=== PATIENT | female | born 1980 | race African-American/Black ===

== ENCOUNTER 2022-03-22 16:10 | Inpatient (IN) | payer BC ==
[~2022-03-22] VITALS: Ht 160 cm; Wt 78.0 kg
[2022-03-22] MEDS ORDERED: PANTOPRAZOLE SOD 40 MG TABEC PO ONE (16:30)
[2022-03-22] MEDS ORDERED: LIDOCAINE VISC 2% SOLN 15 ML UDC PO ONE (16:30)
[2022-03-22] MEDS ORDERED: MAGNESIUM/ALUMINUM/SIMETHICONE 30 ML UDC PO ONE (16:30)
[2022-03-22 16:33] LABS: BASOPHILS # (AUTO) 0.1 (0.0-0.1); BASOPHILS % 0.8 % (0.0-1.0); EOSINOPHILS # (AUTO) 0.2 (0.0-0.4); EOSINOPHILS % 1.6 % (0.0-6.0); HEMATOCRIT 38.3 % (34.2-44.1); HEMOGLOBIN 12.5 g/dL (12.0-16.0); LYMPHOCYTES # (AUTO) 3.5 (1.0-3.2); LYMPHOCYTES % 29.3 % (18.0-39.1); MEAN CORPUSCULAR HEMOGLOBIN 29.4 pg (28-32); MEAN CORPUSCULAR HGB CONC 32.6 g/dL (31-35); MEAN CORPUSCULAR VOLUME 90.1 fL (81-99); MONOCYTES % 8.7 % (4.4-11.3); NEUTROPHILS # (AUTO) 6.9 (2.1-6.9); NEUTROPHILS % 58.9 % (38.7-80.0); PLATELET COUNT 448 x10e3/uL (140-360); RED BLOOD COUNT 4.25 x10e6/uL (3.6-5.1); RED CELL DISTRIBUTION WIDTH 14.8 % (11.7-14.4)
[2022-03-22 16:49] LABS: ALBUMIN 3.5 g/dL (3.5-5.0); ALBUMIN/GLOBULIN RATIO 0.9 (0.8-2.0); ANION GAP 15.5 mmol/L (8-16); CALCIUM 8.5 mg/dL (8.4-10.2); CREATININE, SERUM 0.86 mg/dL (0.57-1.11); POTASSIUM 3.5 mmol/L (3.5-5.1)
[2022-03-22 16:54] LABS: LIPASE 28 U/L (8-78)
[2022-03-22 17:29] LABS: CLARITY,URINE CLEAR (CLEAR); COLOR,URINE YELLOW (YELLOW); KETONES,URINE NEGATIVE (NEGATIVE); LEUKOCYTE ESTERASE ,URINE NEGATIVE (NEGATIVE); NITRITE,URINE NEGATIVE (NEGATIVE); PROTEIN,URINE DIPSTICK NEGATIVE (NEGATIVE); URINE UROBILINOGEN 0.2 mg/dL (0.2 - 1)
[2022-03-22] MEDS ORDERED: SODIUM CHLORIDE 0.9% 1000ML 1,000 ML IV ONE (17:30)
[2022-03-22] MEDS: ONDANSETRON HCL INJ 2MG/ML 2ML 2 MG/ML VIAL IV PRN ×2 (17:37→20:00)
[2022-03-22 17:42] LABS: BACTERIA,URINE FEW /HPF; EPITHELIAL CELLS,URINE FEW /LPF
[2022-03-22] MEDS ORDERED: IOPAMIDOL 370 MG/ML 100 ML INFUS..BTL INJ ONE (17:45)
[2022-03-22] MEDS: Morphine 4mg INJECTION 4 MG/ML INJ IV PRN ×2 (18:05→23:10)
[2022-03-22] MEDS: METOCLOPRAMIDE HCL 10 MG/2ML VIAL IV SCH (18:05)
[2022-03-22] MEDS ORDERED: PROMETHAZINE HCL (IM) 25 MG/ML VIAL IM ONE (18:45)
[2022-03-22] MEDS ORDERED: FENTANYL CITRATE/PF 100MCG/2 ML INJ IV PRN (18:45)
[2022-03-22] MEDS ORDERED: ONDANSETRON HCL INJ 2MG/ML 2ML 2 MG/ML VIAL IV PRN (18:45)
[2022-03-22] MEDS ORDERED: Morphine 4mg INJECTION 4 MG/ML INJ IV PRN (18:45)
[2022-03-22] MEDS: SODIUM CHLORIDE 0.9% 1000ML 1,000 ML IV SCH (19:03)
[2022-03-22] MEDS ORDERED: ACETAMINOPHEN 325 MG TAB PO PRN (19:30)
[2022-03-22] MEDS ORDERED: DOCUSATE SODIUM 100 MG CAP PO PRN (19:30)
[2022-03-22 21:40] VITALS: BP 131/75
[2022-03-22] MEDS: METRONIDAZOLE 500MG/NS 100ML 100 ML IV SCH (22:33)
[2022-03-22 22:59] VITALS: BP 131/75
[2022-03-23] VITALS (9 sets, daily range): BP systolic 95–147; BP diastolic 51–76
[2022-03-23] MEDS: METOCLOPRAMIDE HCL 10 MG/2ML VIAL IV SCH ×5 (00:11→23:18)
[2022-03-23] MEDS: SODIUM CHLORIDE 0.9% 1000ML 1,000 ML IV SCH ×3 (05:12→18:45)
[2022-03-23] MEDS: METRONIDAZOLE 500MG/NS 100ML 100 ML IV SCH ×3 (05:33→21:29)
[2022-03-23 07:53] LABS: BASOPHILS # (AUTO) 0.1 (0.0-0.1); BASOPHILS % 0.6 % (0.0-1.0); EOSINOPHILS # (AUTO) 0.2 (0.0-0.4); EOSINOPHILS % 1.9 % (0.0-6.0); HEMATOCRIT 34.7 % (34.2-44.1); HEMOGLOBIN 10.6 g/dL (12.0-16.0); LYMPHOCYTES % 32.3 % (18.0-39.1); MEAN CORPUSCULAR HEMOGLOBIN 28.7 pg (28-32); MEAN CORPUSCULAR HGB CONC 30.5 g/dL (31-35); MONOCYTES # (AUTO) 0.8 (0.2-0.8); NEUTROPHILS # (AUTO) 5.2 (2.1-6.9); NEUTROPHILS % 55.8 % (38.7-80.0); PLATELET COUNT 384 x10e3/uL (140-360); RED BLOOD COUNT 3.69 x10e6/uL (3.6-5.1); RED CELL DISTRIBUTION WIDTH 15.1 % (11.7-14.4)
[2022-03-23 08:40] LABS: ALBUMIN 2.6 g/dL (3.5-5.0); ALBUMIN/GLOBULIN RATIO 0.9 (0.8-2.0); CALCIUM 7.4 mg/dL (8.4-10.2); CREATININE, SERUM 0.84 mg/dL (0.57-1.11)
[2022-03-23] MEDS: Morphine 4mg INJECTION 4 MG/ML INJ IV PRN (09:37)
[2022-03-23] MEDS: ONDANSETRON HCL INJ 2MG/ML 2ML 2 MG/ML VIAL IV PRN (09:37)
[2022-03-23] MEDS ORDERED: PROPOFOL IV EMULSION 10 MG/ML 20 ML VIAL ONE (12:23)
[2022-03-23] MEDS ORDERED: POVIDONE IODINE 0.05% 0.05 % ML PO ONE (12:23)
[2022-03-23] MEDS ORDERED: MIDAZOLAM HCL 2 MG/2 ML VIAL ONE (12:49)
[2022-03-23] MEDS ORDERED: FENTANYL CITRATE/PF 100MCG/2 ML INJ ONE (12:49)
[2022-03-23] MEDS ORDERED: SODIUM CHLORIDE 0.9% 250ML 250 ML ONE (15:40)
[2022-03-23] MEDS ORDERED: METOCLOPRAMIDE HCL 10 MG/2ML VIAL ONE (15:59)
[2022-03-23] MEDS ORDERED: DONNATAL/LIDOCAINE/MAALOX 30 ML SUSP PO ONE (16:30)
[2022-03-23] MEDS: HYDROMORPHONE 1MG/1ML INJ IV PRN (22:02)
[2022-03-24] VITALS (8 sets, daily range): BP systolic 133–158; BP diastolic 62–86
[2022-03-24] MEDS: SODIUM CHLORIDE 0.9% 1000ML 1,000 ML IV SCH ×3 (05:16→20:02)
[2022-03-24] MEDS: METOCLOPRAMIDE HCL 10 MG/2ML VIAL IV SCH ×3 (05:20→18:21)
[2022-03-24] MEDS: METRONIDAZOLE 500MG/NS 100ML 100 ML IV SCH ×4 (05:21→21:20)
[2022-03-24] MEDS: HYDROMORPHONE 1MG/1ML INJ IV PRN ×2 (15:38→20:13)
[2022-03-24] MEDS: ONDANSETRON HCL INJ 2MG/ML 2ML 2 MG/ML VIAL IV PRN ×2 (15:38→20:13)
[2022-03-24] MEDS: KETOROLAC TROMETHAMINE 30 MG/ML VIAL IV PRN (15:38)
[2022-03-25] VITALS: BP 136/72
[2022-03-25] MEDS: METOCLOPRAMIDE HCL 10 MG/2ML VIAL IV SCH ×3 (00:12→12:30)
[2022-03-25] MEDS: ONDANSETRON HCL INJ 2MG/ML 2ML 2 MG/ML VIAL IV PRN (00:18)
[2022-03-25] MEDS: HYDROMORPHONE 1MG/1ML INJ IV PRN ×2 (00:18→12:44)
[2022-03-25] MEDS: SODIUM CHLORIDE 0.9% 1000ML 1,000 ML IV SCH ×2 (03:18→10:45)
[2022-03-25 04:00] VITALS: BP 110/56
[2022-03-25] MEDS: METRONIDAZOLE 500MG/NS 100ML 100 ML IV SCH (06:40)
[2022-03-25 08:05] VITALS: BP 135/63
[2022-03-25 08:09] VITALS: BP 135/63
[2022-03-25] MEDS: CHLORDIAZEPOXIDE/CLIDINIUM 1 CAP PO SCH ×2 (08:53→12:30)
[2022-03-25] MEDS: KETOROLAC TROMETHAMINE 30 MG/ML VIAL IV PRN (10:09)
[2022-03-25 11:29] VITALS: BP 128/59
== END 2022-03-25 14:50 | disposition home or self-care (01) | DRG 392 ==
LOC: ER 16:21 → ERHOLD 18:41 → INTOOBSV 18:41 → MED/SURG2 21:46 → OBSVTOIN 03-25 08:44
PROVIDERS: ADMIT Internal Medicine; ATTEND Internal Medicine
PROC: 0D758ZZ Dilation of Esophagus, Via Natural or Artificial Opening Endoscopic (ICD-10-PCS; 2022-03-23)
PROC: 0DB78ZX Excision of Stomach, Pylorus, Via Natural or Artificial Opening Endoscopic, Diagnostic (ICD-10-PCS; principal; 2022-03-23 17:00)
DX: K52.9 Noninfective gastroenteritis and colitis, unspecified (principal); K20.90 Esophagitis, unspecified without bleeding; K29.70 Gastritis, unspecified, without bleeding; K57.90 Diverticulosis of intestine, part unspecified, without perforation or abscess without bleeding; F17.200 Nicotine dependence, unspecified, uncomplicated; D25.9 Leiomyoma of uterus, unspecified; E66.9 Obesity, unspecified; Z68.30 Body mass index [BMI] 30.0-30.9, adult; K22.2 Esophageal obstruction; R73.03 Prediabetes; Z20.822 Contact with and (suspected) exposure to COVID-19
CPT/HCPCS: 0223U; 36415; 43450; 74177; 78227; 80053; 80061; 81001; 83036; 83690; 84484; 84702; 85025; 88305; 88312; 88342; 93005; 94799; 96361; 99284; A9537; G0378; J1170; J1885; J2250; J2270; J2405; J2550; J2765; J3010; J7030; J7050; Q9967

== ENCOUNTER 2023-02-27 20:40 | Emergency (ER) | payer OTHER, BC ==
[~2023-02-27] VITALS: Ht 167.6 cm; Wt 79.8 kg
[2023-02-27 20:50] VITALS: O2SAT 100
[2023-02-27] MEDS ORDERED: ULTRAM 50MG50 MG PO (21:56)
== END 2023-02-27 22:01 | disposition home or self-care (01) ==
LOC: ER 20:50
DX: S93.692A Other sprain of left foot, initial encounter (principal); Y93.01 Activity, walking, marching and hiking; Y92.89 Other specified places as the place of occurrence of the external cause; K21.9 Gastro-esophageal reflux disease without esophagitis
CPT/HCPCS: 99282

== ENCOUNTER 2024-02-10 11:23 | Inpatient (IN) | payer BC ==
[~2024-02-10] VITALS: Ht 152.4 cm; Wt 74.8 kg
[~2024-02-10 11:23] MED LIST: MOTRIN200 MG PO; PANTOPRAZOLE SO40 MG PO; PROMETHAZINE HC25 M1 PO; ULTRAM 50MG50 MG PO
[2024-02-10 12:10] LABS: BASOPHILS # (AUTO) 0.1 (0.0-0.1); BASOPHILS % 0.9 % (0.0-1.0); EOSINOPHILS # (AUTO) 0.2 (0.0-0.4); HEMATOCRIT 31.9 % (34.2-44.1); LYMPHOCYTES % 37.3 % (18.0-39.1); MEAN CORPUSCULAR HEMOGLOBIN 24.8 pg (28-32); MEAN CORPUSCULAR HGB CONC 31.3 g/dL (31-35); MONOCYTES # (AUTO) 0.7 (0.2-0.8); MONOCYTES % 8.1 % (4.4-11.3); NEUTROPHILS # (AUTO) 4.2 (2.1-6.9); NEUTROPHILS % 51.5 % (38.7-80.0); PLATELET COUNT 451 x10e3/uL (140-360); RED BLOOD COUNT 4.04 x10e6/uL (3.6-5.1); RED CELL DISTRIBUTION WIDTH 18.8 % (11.7-14.4); WHITE BLOOD COUNT 8.15 x10e3/uL (4.8-10.8)
[2024-02-10 12:40] LABS: ALANINE AMINOTRANSFERASE 13 IU/L (0-55); ALBUMIN 3.4 g/dL (3.5-5.0); ALBUMIN/GLOBULIN RATIO 0.9 (0.8-2.0); ALKALINE PHOSPHATASE 124 IU/L (40-150); ANION GAP 12.9 mmol/L (8-16); BILIRUBIN,TOTAL 0.3 mg/dL (0.2-1.2); BLOOD UREA NITROGEN 7 mg/dL (7-26); BUN/CREATININE RATIO 9 (6-25); CALCIUM 8.8 mg/dL (8.4-10.2); CARBON DIOXIDE 22 mmol/L (22-29); CHLORIDE 108 mmol/L (98-107); CREATININE, SERUM 0.76 mg/dL (0.57-1.11); EST GLOMERULAR FILTRATION RATE 100 ML/MIN (>=60); GLUCOSE 94 mg/dL (74-118); LIPASE 42 U/L (8-78); POTASSIUM 3.9 mmol/L (3.5-5.1); SODIUM 139 mmol/L (136-145); TOTAL PROTEIN 7.3 g/dL (6.5-8.1)
[2024-02-10] MEDS: SUCRALFATE 1 GM TAB PO STA (12:48)
[2024-02-10] MEDS: SODIUM CHLORIDE 0.9% 1000ML 1,000 ML IV ONE (12:48)
[2024-02-10] MEDS: ONDANSETRON HCL INJ 2MG/ML 2ML 2 MG/ML VIAL IV STA (12:48)
[2024-02-10] MEDS: FAMOTIDINE 20 MG/2 ML VIAL IV STA (12:51)
[2024-02-10 13:02] LABS: BILIRUBIN,URINE NEGATIVE (NEGATIVE); CLARITY,URINE CLEAR (CLEAR); COLOR,URINE YELLOW (YELLOW); GLUCOSE, URINE NEGATIVE (NEGATIVE); KETONES,URINE NEGATIVE (NEGATIVE); LEUKOCYTE ESTERASE ,URINE TRACE (NEGATIVE); NITRITE,URINE NEGATIVE (NEGATIVE); PH,URINE 6.5 (5 - 7); PROTEIN,URINE DIPSTICK NEGATIVE (NEGATIVE); URINE UROBILINOGEN 0.2 mg/dL (0.2 - 1)
[2024-02-10 13:05] LABS: BACTERIA,URINE MODERATE /HPF; EPITHELIAL CELLS,URINE FEW /LPF; RBC,URINE 0-5 /HPF (0-5); WBC,URINE (MAN) 0-5 /HPF (0-5)
[2024-02-10] MEDS: DONNATAL/LIDOCAINE/MAALOX 30 ML SUSP PO ONE (13:05)
[2024-02-10] MEDS: DICYCLOMINE HCL 20 MG/2 ML VIAL IM ONE (13:31)
[2024-02-10] MEDS: METOCLOPRAMIDE HCL 10 MG/2ML VIAL IV ONE (15:56)
[2024-02-10] MEDS ORDERED: SODIUM CHLORIDE FLUSH 10 ML SYR INJ PRN (18:00)
[2024-02-10] MEDS ORDERED: METOPROLOL TARTRATE INJ 1 MG/ML VIAL IV PRN (18:30)
[2024-02-10] MEDS ORDERED: MELATONIN 3 MG TAB PO PRN (18:30)
[2024-02-10] MEDS ORDERED: SIMETHICONE 80 MG CHEW PO PRN (18:30)
[2024-02-10] MEDS ORDERED: ALBUTEROL/IPRATROPIUM 3 ML NEB NEB PRN (18:30)
[2024-02-10] MEDS: CALCIUM CARBONATE 500 MG CHEWABLE TABS PO SCH (19:21)
[2024-02-10] MEDS: ONDANSETRON HCL INJ 2MG/ML 2ML 2 MG/ML VIAL IV PRN (19:22)
[2024-02-10 20:15] VITALS: BP 166/72; PULSE 66; RESP 19; TEMP 98.7; O2SAT 100
[2024-02-10 21:09] VITALS: BP 157/92; PULSE 68; RESP 18; TEMP 98.4; O2SAT 100
[2024-02-10] MEDS: Morphine 4mg INJECTION 4 MG/ML INJ IV PRN (22:51)
[2024-02-11] VITALS (8 sets, daily range): BP systolic 125–177; BP diastolic 64–87; PULSE 63–92; RESP 17–20; TEMP 98–98.1; O2SAT 97–100
[2024-02-11 01:33] LABS: % IRON SATURATION 4 % (15-50); IRON 21 ug/dL (50-170); TOTAL IRON BINDING CAPACITY 546 ug/dL (261-478); TRANSFERRIN 390 mg/dL (180-382)
[2024-02-11 05:29] LABS: BASOPHILS # (AUTO) 0.1 (0.0-0.1); BASOPHILS % 1.1 % (0.0-1.0); EOSINOPHILS # (AUTO) 0.2 (0.0-0.4); EOSINOPHILS % 2.2 % (0.0-6.0); HEMATOCRIT 26.3 % (34.2-44.1); HEMOGLOBIN 8.2 g/dL (12.0-16.0); LYMPHOCYTES # (AUTO) 3.5 (1.0-3.2); LYMPHOCYTES % 42.5 % (18.0-39.1); MEAN CORPUSCULAR HEMOGLOBIN 24.9 pg (28-32); MEAN CORPUSCULAR HGB CONC 31.2 g/dL (31-35); MEAN CORPUSCULAR VOLUME 79.9 fL (81-99); MONOCYTES # (AUTO) 0.7 (0.2-0.8); MONOCYTES % 8.1 % (4.4-11.3); NEUTROPHILS # (AUTO) 3.7 (2.1-6.9); NEUTROPHILS % 45.9 % (38.7-80.0); PLATELET COUNT 384 x10e3/uL (140-360); RED BLOOD COUNT 3.29 x10e6/uL (3.6-5.1); RED CELL DISTRIBUTION WIDTH 18.6 % (11.7-14.4); WHITE BLOOD COUNT 8.16 x10e3/uL (4.8-10.8)
[2024-02-11 05:56] LABS: ALBUMIN 2.6 g/dL (3.5-5.0); ALBUMIN/GLOBULIN RATIO 0.8 (0.8-2.0); ANION GAP 11.8 mmol/L (8-16); BILIRUBIN,TOTAL 0.1 mg/dL (0.2-1.2); CALCIUM 8.6 mg/dL (8.4-10.2); CREATININE, SERUM 0.8 mg/dL (0.57-1.11); POTASSIUM 3.8 mmol/L (3.5-5.1); TOTAL PROTEIN 5.8 g/dL (6.5-8.1)
[2024-02-11 06:18] LABS: MAGNESIUM 1.8 MG/DL (1.3-2.1); PHOSPHORUS 3.7 MG/DL (2.3-4.7)
[2024-02-11] MEDS ORDERED: PANTOPRAZOLE SOD 40 MG TABEC PO SCH (07:30)
[2024-02-11] MEDS: NICOTINE 14 MG/EA PATCH TOP SCH (09:00)
[2024-02-11] MEDS ORDERED: CEPHALEXIN500 MG PO (10:07)
[2024-02-11] MEDS ORDERED: PANTOPRAZOLE SO40 MG PO (10:07)
[2024-02-11] MEDS ORDERED: TUMS200 MG PO (10:07)
[2024-02-11] MEDS: SODIUM CHLORIDE 0.9% 250ML 250 ML ONE (10:49)
[2024-02-11] MEDS ORDERED: FENTANYL CITRATE/PF 100MCG/2 ML INJ ONE (13:33)
[2024-02-11] MEDS ORDERED: PROPOFOL IV EMULSION 10 MG/ML 20 ML VIAL ONE (14:04)
[2024-02-11] MEDS ORDERED: LIDOCAINE HCL 2% LOCAL INJ 5 ML SDV VIAL INJ ONE (14:04)
[2024-02-11] MEDS ORDERED: DEXMEDETOMIDINE HCL 200 MCG/2 ML VIAL ONE (14:04)
[2024-02-11] MEDS: DONNATAL/LIDOCAINE/MAALOX 30 ML SUSP PO ONE ×2 (16:48→17:16)
[2024-02-12] VITALS (7 sets, daily range): BP systolic 134–176; BP diastolic 71–83; PULSE 73–80; RESP 17–20; TEMP 98–98.6; O2SAT 97–100
[2024-02-12 07:11] LABS: ANION GAP 11.7 mmol/L (8-16); CALCIUM 8.5 mg/dL (8.4-10.2); CREATININE, SERUM 0.72 mg/dL (0.57-1.11); MAGNESIUM 1.9 MG/DL (1.3-2.1); PHOSPHORUS 3.2 MG/DL (2.3-4.7); POTASSIUM 3.7 mmol/L (3.5-5.1)
[2024-02-12] MEDS: SODIUM CHLORIDE 0.9% 250ML 250 ML ONE (09:04)
[2024-02-12] MEDS: HYDROCORTISONE .5% 30 GM TUBE TOP SCH (14:02)
[2024-02-12] MEDS: DOCUSATE SODIUM 100 MG CAP PO PRN (21:13)
[2024-02-13] VITALS (9 sets, daily range): BP systolic 128–170; BP diastolic 53–92; PULSE 69–99; RESP 18; TEMP 97.7–98.6; O2SAT 96–100
[2024-02-13] MEDS ORDERED: FERROUS SULFAT325 MG PO (06:22)
[2024-02-13] MEDS ORDERED: LOPRESSOR25 MG PO (06:22)
[2024-02-13] MEDS ORDERED: ONDANSETRON ODT4 MG PO (06:23)
[2024-02-13] MEDS: METOPROLOL TARTRATE 25 MG TAB PO SCH (06:36)
[2024-02-13] MEDS: ACETAMINOPHEN 325 MG TAB PO PRN (06:43)
[2024-02-13] MEDS: IRON SUCROSE 100 MG in SODIUM CHLORIDE 0.9% 100 ML IV SCH (09:00)
[2024-02-13] MEDS: NIFEDIPINE CR 30 MG TAB PO SCH ×2 (09:46→13:30)
[2024-02-13] MEDS: HYDRALAZINE HCL 25 MG TAB PO SCH (11:56)
[2024-02-14 04:00] VITALS: BP 128/73; PULSE 98; RESP 18; TEMP 98.3; O2SAT 100
[2024-02-14 08:05] VITALS: BP 134/77; PULSE 75; RESP 16; TEMP 98.2; O2SAT 97
[2024-02-14] MEDS ORDERED: AMLODIPINE BESYL5 MG PO (08:29)
[2024-02-14] MEDS ORDERED: METOPROLOL TART25 MG PO (08:30)
[2024-02-14 09:00] VITALS: BP 134/77; PULSE 75; RESP 16; TEMP 98.2; O2SAT 97
[2024-02-14 09:19] VITALS: BP 134/77; PULSE 75
== END 2024-02-14 10:10 | disposition home or self-care (01) | DRG 690 ==
LOC: ER 11:58 → ERHOLD 17:52 → MED/SURG 20:47 → OBSVTOIN 02-12 09:10
PROVIDERS: ADMIT Family Medicine Adult Medicine; ATTEND Family Medicine Adult Medicine
PROC: 0DB68ZX Excision of Stomach, Via Natural or Artificial Opening Endoscopic, Diagnostic (ICD-10-PCS; 2024-02-11)
PROC: 0DB78ZX Excision of Stomach, Pylorus, Via Natural or Artificial Opening Endoscopic, Diagnostic (ICD-10-PCS; 2024-02-11)
PROC: 0DB98ZX Excision of Duodenum, Via Natural or Artificial Opening Endoscopic, Diagnostic (ICD-10-PCS; 2024-02-11)
PROC: 0D748ZZ Dilation of Esophagogastric Junction, Via Natural or Artificial Opening Endoscopic (ICD-10-PCS; principal; 2024-02-11 16:22)
DX: N39.0 Urinary tract infection, site not specified (principal); I10 Essential (primary) hypertension; K29.70 Gastritis, unspecified, without bleeding; K21.00 Gastro-esophageal reflux disease with esophagitis, without bleeding; K22.2 Esophageal obstruction; R13.10 Dysphagia, unspecified; D64.9 Anemia, unspecified; Z11.52 Encounter for screening for COVID-19; F17.210 Nicotine dependence, cigarettes, uncomplicated; Z88.6 Allergy status to analgesic agent; Z88.0 Allergy status to penicillin; Z88.8 Allergy status to other drugs, medicaments and biological substances
CPT/HCPCS: 36415; 43239; 76705; 80048; 80053; 81001; 82607; 82746; 83540; 83690; 83735; 84100; 84466; 84702; 85025; 85045; 88305; 88342; 93005; 94799; 99284; G0378; J0696; J1756; J2001; J2270; J2405; J2765; J7030; J7050; U0002